=== PATIENT | female | born 1950 | race Caucasian/White ===

== ENCOUNTER → 2019-11-26 13:41 | Outpatient (BNVA) | payer MEDICARE, OTHER, SELFPAY | PROVIDERS: Family Provider Nurse Practitioner; PCP Nurse Practitioner; Visit Provider Nurse Practitioner | DX: F31.81 Bipolar II disorder (principal); F41.1 Generalized anxiety disorder | CPT/HCPCS: 99213 ==

== ENCOUNTER → 2019-12-19 09:52 | Outpatient (BNVA) | payer MEDICARE, OTHER, SELFPAY | PROVIDERS: Family Provider Nurse Practitioner; PCP Nurse Practitioner; Visit Provider Nurse Practitioner | DX: E03.8 Other specified hypothyroidism (principal); F31.81 Bipolar II disorder; K21.9 Gastro-esophageal reflux disease without esophagitis | CPT/HCPCS: 80048; 84439; 84443; 84481 ==

== ENCOUNTER → 2020-02-24 08:19 | Outpatient (BNVA) | payer MEDICARE, OTHER, SELFPAY | PROVIDERS: Family Provider Nurse Practitioner; PCP Nurse Practitioner; Visit Provider Nurse Practitioner | DX: F41.1 Generalized anxiety disorder (principal); F31.81 Bipolar II disorder; F43.12 Post-traumatic stress disorder, chronic | CPT/HCPCS: 99213 ==

== ENCOUNTER → 2020-05-21 08:38 | Outpatient (BNVA) | payer MEDICARE, OTHER, SELFPAY | PROVIDERS: Family Provider Nurse Practitioner; PCP Nurse Practitioner; Visit Provider Nurse Practitioner | DX: F31.81 Bipolar II disorder (principal); F41.1 Generalized anxiety disorder; F43.12 Post-traumatic stress disorder, chronic | CPT/HCPCS: 99213 ==

== ENCOUNTER → 2020-05-28 09:11 | Outpatient (BNVA) | payer MEDICARE, OTHER, SELFPAY | PROVIDERS: Family Provider Nurse Practitioner; PCP Nurse Practitioner; Visit Provider Nurse Practitioner | DX: F31.81 Bipolar II disorder (principal) | CPT/HCPCS: 80164 ==

== ENCOUNTER → 2020-07-10 09:25 | Outpatient (BNVA) | payer MEDICARE, OTHER, SELFPAY | PROVIDERS: Family Provider Nurse Practitioner; PCP Nurse Practitioner; Visit Provider Nurse Practitioner Family | DX: R35.0 Frequency of micturition (principal) | CPT/HCPCS: 81000 ==

== ENCOUNTER → 2020-07-20 08:56 | Outpatient (BNVA) | payer MEDICARE, OTHER, SELFPAY | PROVIDERS: Family Provider Nurse Practitioner; PCP Nurse Practitioner; Visit Provider Nurse Practitioner Family | DX: N39.0 Urinary tract infection, site not specified (principal) | CPT/HCPCS: 81000 ==

== ENCOUNTER → 2020-08-20 08:25 | Outpatient (BNVA) | payer MEDICARE, OTHER, SELFPAY | PROVIDERS: Family Provider Nurse Practitioner; PCP Nurse Practitioner; Visit Provider Nurse Practitioner | DX: F41.1 Generalized anxiety disorder (principal); F31.81 Bipolar II disorder; Z79.899 Other long term (current) drug therapy; F43.12 Post-traumatic stress disorder, chronic | CPT/HCPCS: 99213 ==

== ENCOUNTER → 2020-09-07 09:05 | Outpatient (BNVA) | payer MEDICARE, OTHER, SELFPAY | PROVIDERS: Family Provider Nurse Practitioner; PCP Nurse Practitioner; Visit Provider Nurse Practitioner Family | DX: Z79.899 Other long term (current) drug therapy (principal); E03.8 Other specified hypothyroidism; K21.9 Gastro-esophageal reflux disease without esophagitis; F41.1 Generalized anxiety disorder | CPT/HCPCS: 80053; 80061; 80164; 84443; 85025 ==

== ENCOUNTER → 2020-11-10 08:05 | Outpatient (BNVA) | payer MEDICARE, OTHER, SELFPAY | PROVIDERS: Family Provider Nurse Practitioner; PCP Nurse Practitioner; Visit Provider Nurse Practitioner | DX: F31.81 Bipolar II disorder (principal); F41.1 Generalized anxiety disorder | CPT/HCPCS: 99213 ==

== ENCOUNTER → 2020-11-30 14:57 | Outpatient (BNVA) | payer MEDICARE, OTHER, SELFPAY | PROVIDERS: Family Provider Nurse Practitioner; PCP Nurse Practitioner; Visit Provider Nurse Practitioner | DX: E55.9 Vitamin D deficiency, unspecified (principal); I83.93 Asymptomatic varicose veins of bilateral lower extremities; R09.89 Other specified symptoms and signs involving the circulatory and respiratory systems | CPT/HCPCS: 82306; 83735 ==

== ENCOUNTER → 2021-02-05 16:15 | Outpatient (BNVA) | payer MEDICARE, OTHER, SELFPAY | PROVIDERS: Family Provider Nurse Practitioner; PCP Nurse Practitioner; Visit Provider Nurse Practitioner | DX: R30.0 Dysuria (principal) | CPT/HCPCS: 81000 ==

== ENCOUNTER 2021-02-15 11:28 | Emergency (ER) | payer MEDICARE, OTHER, SELFPAY ==
[2021-02-15 11:52] VITALS: BP 140/78; PULSE 87; RESP 18; TEMP 36.8; O2SAT 97; BMI 23.0
[2021-02-15 12:32] VITALS: PULSE 90
--- NOTE | 2021-02-15 12:32 | CT_ITS ---
WS: [id number] CT CERVICAL SPINE HISTORY: syncopal episode and fell. woke up with neck pain TECHNIQUE: Contiguous 2.5 mm axial imaging performed through the entire cervical spine. Sagittal and coronal reformats also performed. All CT scans at [facility] use at least one of these do se optimization techniques: automated exposure control; mA and/or kV adjustment per patient size (inc ludes targeted exams where dose is matched to clinical indication); or iterative reconstruction. DLP: 431.01 mGy.cm COMPARISON: None available. Straightening of the normal cervical doses. C2 and C3 anterolisthesis by 2 mm. Moderate degenerative disc space narrowing and osteophytosis at C5-6 and C6-7. No fractures. Craniocervical junction is nor mal. The odontoid process is intact. Facet joints are normally aligned. Marked narrowing of the facet joints, most significant at L3-4. C2-C3: Small central disc protrusion with mild RIGHT foraminal narrowing due to severe facet joint ar thritis. C3-C4: Bilateral facet joint arthritis causing mild bilateral foraminal stenosis. C4-C5: Mild osteophytic ridging resulting in mild bilateral foraminal stenosis. C5-C6: Marked osteophytic ridging with mild encroachment of osteophytes about the thecal sac. Moderat e RIGHT and mild LEFT foraminal stenosis. C6-C7: Diffuse osteophytic ridging. Mild bilateral foraminal stenosis. C7-T1: Normal. 6 mm nodule with adjacent scattered opacifications in the RIGHT upper lobe. Mild atherosclerosis of t he visualized thoracic aorta. CT/CT cervical spin wo con* [id number] IMPRESSION: 1. No acute cervical spine fracture. 2. Facet joint arthritis and osteophytic ridging contributing to foraminal vega nosis as described above. 3. RIGHT upper lobe nodule measuring 6 mm with adjacent scattered opacificatio ns. Recommend follow-up chest CT with IV contrast which can be performed as an outpatient on a nonurgent basis.
--- NOTE | 2021-02-15 12:32 | CT_ITS ---
WS: [id number] CT HEAD NONCONTRAST HISTORY: syncopal episode TECHNIQUE: Contiguous axial imaging performed through the brain in 2.5 mm imaging. Bone and soft tiss ue windows. Sagittal and coronal reformats reviewed. All CT scans at [facility] use at ast one of these dose optimization techniques: automated exposure control; mA and/or kV adjustment pe r patient size (includes targeted exams where dose is matched to clinical indication); or iterative r econstruction. DLP: 874.75 mGy.cm COMPARISON: MRI brain 12/29/2016 No acute intracranial hemorrhage, midline shift or mass effect. Mild atrophy and mild chronic microvascular ischemic disease. No prior infarcts. Ventricles: Normal size with no hydrocephalus. Paranasal sinuses: As visualized are clear. Mastoid air cells: Well pneumatized. Calvarium and scalp: Skull is intact with no soft tissue edema or swelling. CT/CT head wo con* [id number] IMPRESSION: 1. No acute intracranial hemorrhage or edema. 2. Mild atrophy and mild chronic microvascular ischemic disease.
--- NOTE | 2021-02-15 12:32 | XRR_ITS ---
PROCEDURE INFORMATION: Exam: XR Chest Exam date and time: 02/15/2021 12:44 PM Age: 70 years old Clinical indication: Fever TECHNIQUE: Imaging protocol: XR of the chest. Views: 1 view. COMPARISON: CR Chest 2 views* [id number] 11/23/2015 2:18 PM FINDINGS: Lungs: There are bilateral pulmonary infiltrates. There is hazy infiltration of the right upper lobe and more prominent patchy hazy infiltrate in the left mid and lower lung zones. This is consistent with bilateral pneumonia. Pleural spaces: Unremarkable. No pleural effusion. No pneumothorax. Heart/Mediastinum: There is a small hiatal hernia. Bones/joints: Unremarkable. XR/XR chest 1V portable [id number] IMPRESSION: Bilateral pneumonia.
--- NOTE | 2021-02-15 12:33 | ECG_ITS ---
[facility] Test Date: 2021-02-15 Pat Name: Kaylee Chun Department: Room: Gender: Female Regional Branch Manager: : 1950 Requested By: Francisco Medina Order Number: [id number] Artis MD: Gabriela Helton M.D. Measurements Intervals [place] Rate: 90 P: 64 MD: 156 QRS: -7 QRSD: 105 T: 52 QT: 345 QTc: 423 Interpretive Statements SINUS RHYTHM WITH ARTIFACT LOW QRS VOLTAGE IN PRECORDIAL LEADS [QRS DEFLECTION < 1.0 mV IN CHEST LEADS] INCOMPLETE RIGHT BUNDLE BRANCH BLOCK [90+ ms QRS DURATION, TERMINAL R IN V1/V2, 40+ ms S IN I/aVL/V4/V5/V6] No previous ECG available for comparison Electronically Signed On 02-16-2021 12:20:30 CDT by Gabriela Helton M.D. [id number]
--- NOTE | 2021-02-15 12:34 | W.ED.SYNCOPE ---
HPI - Syncope General: Chief Complaint: Fever Stated Complaint: FEVER, GENERAL UNWELLNESS Time Seen by Provider: 02/15/21 12:02 History of Present Illness: HPI narrative: Patient is a 70-year-old female comes to the ED after having a syncopal episode. Patient's is present is helping provide history. Patient woke up this morning and had the chills and a fever of 102 ?F. Patient took some aspirin and then laid down and went to sleep. Later in the morning patient got up and went to the bathroom and had a syncopal episode. Patient does not remember getting up and going to the bathroom and states she woke up on her back on the floor of the bathroom which is a tiled floor. She says she had a headache and some neck pain and cannot remember what happened. Patient says for the past 10 to 12 days she has been treating a UTI. She had some burning with urination and was diagnosed with a UTI and put on Keflex. She took her last dose of Keflex on February 13. She says today she is having urine frequency but denies any burning or pain when she urinates. Patient does endorse having a hacking cough that is been going on for several days as well. She says the cough is productive and she coughs up yellow sputum. Denies any abdominal pain, flank pain, nausea/vomiting, chest pain, shortness of breath. Patient's also thought she seemed to have some confusion this morning, but here in the ED she appears to be almost at her baseline. Associated symptoms: Reports headache(s); Deny abdominal pain, chest pain, fever(s) or nausea Review of Systems Const: Denies: fever(s), chills or fatigue Eyes: Denies: change in vision or eye discomfort ENMT: Denies: throat pain, odynophagia, nasal discharge or nasal congestion Card: Reports: syncope; Denies: chest pain, palpitations, edema, swelling of feet/ankles, dyspnea on exertion or orthopnea Resp: Reports: productive cough (Coughs up yellow sputum); Denies: dyspnea or non-productive cough GI: Denies: abdominal pain, nausea, vomiting, diarrhea, constipation or hematochezia : Reports: urinary frequency; Denies: flank pain, dysuria or hematuria Musc: Reports: neck pain; Denies: back pain or extremity swelling Skin/Breast: Denies: rash or new lesions Neuro: Reports: headache(s); Denies: numbness in extremities or weakness in extremities PFSH ED PFSH: Medical History Adult onset hypothyroidism Bipolar 2 disorder, major depressive episode Dependence on CPAP ventilation Generalized anxiety disorder GERD (gastroesophageal reflux disease) History of mammogram 2019 Normal Mild obstructive sleep apnea On valproic acid therapy Wears hearing aid in both ears Surgical History History of colonoscopy 2014 History of gastric bypass History of tubal ligation Family History Father CAD (coronary artery disease) Parkinson disease Mother Bipolar disorder Other Hypertension Social History Smoking and tobacco status: never smoked Second hand smoke exposure: No Smoking risk assessment/counseling performed?: No Alcohol intake: never Desire information about alcohol rehabilitation?: No Counseling given: No Desire information about substance/drug rehabilitation?: No Counseling given: No Adopted: No Caregiver/support person: No Lives independently: Yes Household members: spouse Marital status: service: No Current occupational status: retired Pets and animals: Yes Pets & animals: dog(s) History of recent travel: No Current gender identity: Female Physical Exam Const: COMMON NORMALS: no acute distress, patient oriented x3, healthy appearing and alert GENERAL APPEARANCE: cooperative and comfortable HENMT: COMMON NORMALS: normocephalic HEAD & SCALP: normocephalic; no Terrazas's sign, no palpable skull fracture, no raccoon eyes and no scalp tenderness MOUTH: Normal oral and palatal mucosa present THROAT: posterior oropharynx normal and uvula midline Neck/C-Spine: COMMON NORMALS: supple GENERAL: Yes normal visual inspection CERVICAL SPINE: Yes cervical ROM normal Resp: COMMON NORMALS: normal respiratory effort, No retractions, No use of accessory muscles and clear to auscultation bilaterally (Right lung clear to auscultation) AUSCULTATION: clear to auscultation bilaterally (Right lung clear to auscultation) and diminished lung sounds on the left (Diminished lung sounds on left side.) in the lower lung mills and in the upper lung mills Cardio: COMMON NORMALS: regular rate, regular rhythm, S1 normal heart sound present, S2 normal heart sound present, No gallops present (Cardio), No clicks present (Cardio), No murmurs present (Cardio) and Peripheral pulses 2+ throughout RATE: regular rate RHYTHM: regular rhythm HEART SOUNDS: S1 normal heart sound present and S2 normal heart sound present PERIPHERAL PULSES: Peripheral pulses 2+ throughout GI: COMMON NORMALS: Normal to inspection, nondistended, normoactive bowel sounds present, Soft to palpation, non-tender and no masses PALPATION: Yes Soft to palpation : COMMON NORMALS: Yes no CVA tenderness BLADDER/KIDNEY EXAM: Yes no CVA tenderness Back/Pelvis: COMMON NORMALS: no CVA tenderness Extremity: COMMON NORMALS: normal to inspection Neuro: COMMON NORMALS: patient oriented x3, CN's II-XII intact bilaterally, moves all extremities and no focal motor deficits SENSORIUM/ORIENTATION: Yes alert SENSORY EXAM: Yes extremities (intact) MOTOR EXAM: 5/5 motor strength present throughout Skin: GENERAL SKIN EXAM: dry skin Course Vital Signs: Vital signs: Vital Signs Temperature 98.2 F 02/15/21 11:52 Pulse Rate 82 02/15/21 16:24 Respiratory Rate 15 02/15/21 16:24 Blood Pressure 112/76 02/15/21 16:24 Pulse Oximetry 98 02/15/21 16:24 MDM - Syncope MDM Narrative: Medical decision making narrative: Patient is a 70-year-old female comes to the ED with a fever and syncopal episode. Patient says that she had a fever this morning and was recently treated for UTI and took her last dose of Keflex on approximately 3 days ago. Patient also endorses having productive cough with yellow phlegm. Today she woke up with a fever and says she had a syncopal episode in the bathroom and woke up on the floor. She has a headache and some neck pain as well after fall. Exam shows a nontoxic 70-year-old female patient that is lying comfortably on exam bed and in no acute distress or pain. Patient's neuro exam was normal. White blood cell count 19.1 rest of CBC and CMP were unremarkable. Lactic 1.2 troponins negative and EKG showed normal sinus rhythm with no ST segment elevation or depression. CT of cervical spine and CT of head showed no acute findings. Chest x-ray showed bilateral pneumonia. Patient's vital stable and respiration rate 15 and O2 sat 98% on room air. Patient was given IV fluids and Rocephin while here in the ED. Patient diagnosed with bilateral pneumonia and syncope and discharged home with a prescription for azithromycin. Patient also discharged home with some Zofran to take as needed for nausea. Patient has a appointment with her PCP on October 20 for follow-up. Return to ED precautions given. Patient understood agree with plan. Lab Data: Attestation: I reviewed the patient's lab results. Labs: Lab Results 02/15/21 02/15/21 02/15/21 Range/Units 12:55 12:55 12:55 WBC 19.1 H (4.0-10.0) 10^3/ uL RBC 3.38 L (4.1-5.3) 10^6/u L Hgb 11.9 (11.5-15.3) g/dL Hct 37.2 (37.0-47.0) % MCV 110.1 H (81-99) fL MCH 35.2 H (28.0-34.0) pg MCHC 32.0 (30.0-36.0) g/dL RDW 13.1 (12.1-15.1) % Plt Count 165 (130-400) 10^3/c mm MPV 9.6 (7.4-10.4) fL Neut % (Auto) 81.9 % Lymph % (Auto) 5.0 % [place] % (Auto) 12.2 % Eos % (Auto) 0.0 % Baso % (Auto) 0.3 % Neut # (Auto) 15.65 H (1.8-7.7) 10^3/u L Lymph # (Auto) 1.0 (0.8-4.8) 10^3/u L [place] # (Auto) 2.3 H (0.2-0.9) 10^3/u L Eos # (Auto) 0.0 (0.0-0.8) 10^3/u L Baso # (Auto) 0.1 (0.0-0.1) 10^3/u L Nucleated RBC % (a uto) 0 % Nucleated RBCs # 0.0 /100WBC Sodium 139 (136-145) mmol/L Potassium 4.3 (3.5-5.1) mmol/L Chloride 102 (98-107) mmol/L Carbon Dioxide 28 (22-29) mmol/L Anion Gap 13.3 (5-19) BUN 11 (8-23) mg/dL Creatinine 0.7 (0.5-0.9) mg/dL GFR Calculation 83.0 L (90-130) mL/min Glucose 81 (65-115) mg/dL Calculated Osmolal ity 286 (285-295) mOsm/k g Lactic Acid (0.5-2.2) mmol/L Calcium 8.8 (8.5-10.5) mg/dL Total Bilirubin 0.4 (0.15-1.2) mg/dL AST 14 (0-32) U/L ALT < 5 (0-33) U/L Alkaline Phosphata se 63 (35-105) IU/L Troponin T Baselin e 12 H (0-10) ng/L Troponin T 120 Min habematolel (0-10) ng/L Delta Troponin T (0-10) ABS# Total Protein 5.7 L (6.6-8.7) g/dL Albumin 3.7 (3.5-5.2) g/dL Globulin 2.0 (1.3-4.6) g/dL Lipase 12 L (13-60) U/L Valproic Acid (50-100) ug/mL 02/15/21 02/15/21 02/15/21 Range/Units 12:55 15:00 15:05 WBC (4.0-10.0) 10^3/ uL RBC (4.1-5.3) 10^6/u L Hgb (11.5-15.3) g/dL Hct (37.0-47.0) % MCV (81-99) fL MCH (28.0-34.0) pg MCHC (30.0-36.0) g/dL RDW (12.1-15.1) % Plt Count (130-400) 10^3/c mm MPV (7.4-10.4) fL Neut % (Auto) % Lymph % (Auto) % [place] % (Auto) % Eos % (Auto) % Baso % (Auto) % Neut # (Auto) (1.8-7.7) 10^3/u L Lymph # (Auto) (0.8-4.8) 10^3/u L [place] # (Auto) (0.2-0.9) 10^3/u L Eos # (Auto) (0.0-0.8) 10^3/u L Baso # (Auto) (0.0-0.1) 10^3/u L Nucleated RBC % (a uto) % Nucleated RBCs # /100WBC Sodium (136-145) mmol/L Potassium (3.5-5.1) mmol/L Chloride (98-107) mmol/L Carbon Dioxide (22-29) mmol/L Anion Gap (5-19) BUN (8-23) mg/dL Creatinine (0.5-0.9) mg/dL GFR Calculation (90-130) mL/min Glucose (65-115) mg/dL Calculated Osmolal ity (285-295) mOsm/k g Lactic Acid 1.2 (0.5-2.2) mmol/L Calcium (8.5-10.5) mg/dL Total Bilirubin (0.15-1.2) mg/dL AST (0-32) U/L ALT (0-33) U/L Alkaline Phosphata se (35-105) IU/L Troponin T Baselin e (0-10) ng/L Troponin T 120 Min habematolel 12.18 H (0-10) ng/L Delta Troponin T 0.18 (0-10) ABS# Total Protein (6.6-8.7) g/dL Albumin (3.5-5.2) g/dL Globulin (1.3-4.6) g/dL Lipase (13-60) U/L Valproic Acid 125.3 H (50-100) ug/mL Imaging Data^: CT Head: Attestation: I personally reviewed and interpreted this imaging study as follows: Radiologist's impression: [address] [address] [address] Scan Report Signed Patient: Kaylee Chun Unit #: [id number] : 1950 Age/Sex: 70 / F ADM Date: 02/15/21 Loc: ER Room/Bed: Attending Dr: Ordering Provider/Ordering MD: Francisco Medina Date of Service: 02/15/21 Procedure(s): CT head wo con* [id number] Accession Number(s): [id number] Report Number: [id number] WS: [id number] CT HEAD NONCONTRAST HISTORY: syncopal episode TECHNIQUE: Contiguous axial imaging performed through the brain in 2.5 mm imaging. Bone and soft tissue windows. Sagittal and coronal reformats reviewed. All CT scans at [facility] use at least one of these dose optimization techniques: automated exposure control; mA and/or kV adjustment per patient size (includes targeted exams where dose is matched to clinical indication); or iterative reconstruction. DLP: 874.75 mGy.cm COMPARISON: MRI brain 12/29/2016 No acute intracranial hemorrhage, midline shift or mass effect. Mild atrophy and mild chronic microvascular ischemic disease. No prior infarcts. Ventricles: Normal size with no hydrocephalus. Paranasal sinuses: As visualized are clear. Mastoid air cells: Well pneumatized. Calvarium and scalp: Skull is intact with no soft tissue edema or swelling. CT/CT head wo con* [id number] IMPRESSION: 1. No acute intracranial hemorrhage or edema. 2. Mild atrophy and mild chronic microvascular ischemic disease. Dictated By: Trini Foy DO Signed By: Trini Foy DO Signed Date/Time: 02/15/21 1325 DD/ [address]: Attestation: I personally reviewed and interpreted this imaging study as follows: Radiologist's impression: [address] [address] [address] Scan Report Signed Patient: Kaylee Chun Unit #: [id number] : 1950 Age/Sex: 70 / F ADM Date: 02/15/21 Loc: ER Room/Bed: Attending Dr: Ordering Provider/Ordering MD: Francisco Medina Date of Service: 02/15/21 Procedure(s): CT cervical spin wo con* [id number] Accession Number(s): [id number] Report Number: [id number] WS: [id number] CT CERVICAL SPINE HISTORY: syncopal episode and fell. woke up with neck pain TECHNIQUE: Contiguous 2.5 mm axial imaging performed through the entire cervical spine. Sagittal and coronal reformats also performed. All CT scans at [facility] use at least one of these dose optimization techniques: automated exposure control; mA and/or kV adjustment per patient size (includes targeted exams where dose is matched to clinical indication); or iterative reconstruction. DLP: 431.01 mGy.cm COMPARISON: None available. Straightening of the normal cervical doses. C2 and C3 anterolisthesis by 2 mm. Moderate degenerative disc space narrowing and osteophytosis at C5-6 and C6-7. No fractures. Craniocervical junction is normal. The odontoid process is intact. Facet joints are normally aligned. Marked narrowing of the facet joints, most significant at L3-4. C2-C3: Small central disc protrusion with mild RIGHT foraminal narrowing due to severe facet joint arthritis. C3-C4: Bilateral facet joint arthritis causing mild bilateral foraminal stenosis. C4-C5: Mild osteophytic ridging resulting in mild bilateral foraminal stenosis. C5-C6: Marked osteophytic ridging with mild encroachment of osteophytes about the thecal sac. Moderate RIGHT and mild LEFT foraminal stenosis. C6-C7: Diffuse osteophytic ridging. Mild bilateral foraminal stenosis. C7-T1: Normal. 6 mm nodule with adjacent scattered opacifications in the RIGHT upper lobe. Mild atherosclerosis of the visualized thoracic aorta. CT/CT cervical spin wo con* [id number] IMPRESSION: 1. No acute cervical spine fracture. 2. Facet joint arthritis and osteophytic ridging contributing to foraminal stenosis as described above. 3. RIGHT upper lobe nodule measuring 6 mm with adjacent scattered opacifications. Recommend follow- up chest CT with IV contrast which can be performed as an outpatient on a nonurgent basis. Dictated By: Trini Foy DO Signed By: Trini Foy DO Signed Date/Time: 02/15/21 1330 DD/ 1325 CXR: Attestation: I personally reviewed and interpreted this imaging study as follows: Radiologist's impression: [address] [place] [address] XRay Report Signed Patient: Kaylee Chun Unit #: [id number] : 1950 Age/Sex: 70 / F ADM Date: 02/15/21 Loc: ER Room/Bed: Attending Dr: Ordering Provider/Ordering MD: Francisco Medina Date of Service: 02/15/21 Procedure(s): XR chest 1V portable [id number] Accession Number(s): [id number] Report Number: [id number] PROCEDURE INFORMATION: Exam: XR Chest Exam date and time: 02/15/2021 12:44 PM Age: 70 years old Clinical indication: Fever TECHNIQUE: Imaging protocol: XR of the chest. Views: 1 view. COMPARISON: CR Chest 2 views* [id number] 11/23/2015 2:18 PM FINDINGS: Lungs: There are bilateral pulmonary infiltrates. There is hazy infiltration of the right upper lobe and more prominent patchy hazy infiltrate in the left mid and lower lung zones. This is consistent with bilateral pneumonia. Pleural spaces: Unremarkable. No pleural effusion. No pneumothorax. Heart/Mediastinum: There is a small hiatal hernia. Bones/joints: Unremarkable. XR/XR chest 1V portable [id number] IMPRESSION: Bilateral pneumonia. Dictated By: Wu Ramirez Signed By: Wu Ramirez Signed Date/Time: 02/15/21 1258 DD/ 1256 EKG Data^: EKG 1: Attestation: I personally reviewed and interpreted this EKG as follows: EKG interpretation date: 02/15/21 Interpretation: Sinus rhythm, 83 bpm, no ST segment elevation or depression seen. Discharge Plan Discharge Patient Disposition: Home Clinical Impression: Bilateral pneumonia Qualifiers: Pneumonia type: due to unspecified organism Lung location: unspecified part of lung Qualified Code(s): J18.9 - Pneumonia, unspecified organism Syncope Qualifiers: Syncope type: unspecified Qualified Code(s): R55 - Syncope and collapse Condition: Stable Prescriptions: New azithromycin 250 mg tablet See Rx Instructions .ROUTE .COMPLEX Qty: 6 RF: 0 ondansetron 4 mg tablet,disintegrating 4 mg PO Q8H Qty: 15 RF: 0 No Action metronidazole 0.75 % gel 1 applic TOPICAL DAILY Qty: 45 RF: 0 divalproex [Depakote] 250 mg tablet,delayed release (DR/EC) 750 mg PO BID Qty: 180 RF: 2 levothyroxine 25 mcg capsule 25 mcg PO DAILY Qty: 30 RF: 5 tolterodine [Detrol LA] 4 mg capsule,extended release 24hr 4 mg PO Q24H 30 Days Qty: 30 RF: 5 Keflex 500 mg Capsule 500 mg PO Q12H RF: 0 Vitamin C 1 tab PO DAILY RF: 0 Vitamin D3 1 tab PO DAILY RF: 0 zinc 1 tab PO DAILY RF: 0 Protonix 40 mg tablet,delayed release (DR/EC) 40 mg PO DAILY RF: 0 Ambien 10 mg tablet 10 mg PO BEDTIME RF: 0 Discharge Orders: Discharge ED (Routine); Ordered 02/15/21 Ordered By: Francisco Medina Referrals: Ceci Orozco FNP-C [Primary Care Provider] - Discharge Diet: Advance as tolerated Discharge Activity: Increase activity as tolerated Patient Instructions: Syncope (ED), Pneumonia (ED) Activity Restrictions/Additional Instructions: Follow-up with medical provider as directed. Contact your PCP and set up an appointment with them to be seen and reevaluated by February 19. Take medications as prescribed. Drink plenty of fluids and stay hydrated. Return to the ER or your medical provider if condition worsens. Please read and understand discharge instructions. If any questions, please ask. Coding Level of Care Code ED [employer] for [employer]esha Fwd Exam Comprehensive
[2021-02-15 13:08] VITALS: BP 116/64; PULSE 89; RESP 20; O2SAT 99
[2021-02-15 13:14] LABS: Basophils # 0.1 10^3/uL (0.0-0.1); Basophils % 0.3 %; Hematocrit 37.2 % (37.0-47.0); Hemoglobin 11.9 g/dL (11.5-15.3); Mean Corpuscular Hemoglobin 35.2 pg (28.0-34.0); Mean Corpuscular Volume 110.1 fL (81-99); Mean Platelet Volume 9.6 fL (7.4-10.4); Monocytes # 2.3 10^3/uL (0.2-0.9); Monocytes % 12.2 %; Neutrophils # 15.65 10^3/uL (1.8-7.7); Neutrophils % 81.9 %; Nucleated Red Blood Cells % 0 %; Platelet Count 165 10^3/cmm (130-400); Red Blood Count 3.38 10^6/uL (4.1-5.3); Red Cell Distribution Width 13.1 % (12.1-15.1); White Blood Count 19.1 10^3/uL (4.0-10.0)
[2021-02-15 13:30] LABS: Alanine Aminotransferase < 5 U/L (0-33); Albumin Level 3.7 g/dL (3.5-5.2); Alkaline Phosphatase 63 IU/L (35-105); Anion Gap 13.3 (5-19); Aspartate Amino Transferase 14 U/L (0-32); Blood Urea Nitrogen 11 mg/dL (8-23); Calcium 8.8 mg/dL (8.5-10.5); Carbon Dioxide 28 mmol/L (22-29); Chloride 102 mmol/L (98-107); Glucose 81 mg/dL (65-115); Lipase 12 U/L (13-60); Osmolality Calculated 286 mOsm/kg (285-295); Potassium 4.3 mmol/L (3.5-5.1); Sodium 139 mmol/L (136-145); Total Bilirubin 0.4 mg/dL (0.15-1.2); Total Protein 5.7 g/dL (6.6-8.7)
[2021-02-15 13:32] LABS: Troponin(5th) Baseline 12 ng/L (0-10)
[2021-02-15] MEDS: cefTRIAXone 2,000 MG in sodium chloride 0.9% (plus) 50 ML 100 MG IV (13:46)
[2021-02-15] MEDS: sodium chloride 0.9% 1,000 ML 999 ML IV (13:46)
[2021-02-15 14:07] LABS: Valproic Acid Level 125.3 ug/mL (50-100)
[2021-02-15 14:08] VITALS: BP 128/90; PULSE 78; RESP 18; O2SAT 96
--- NOTE | 2021-02-15 14:33 | ECG_ITS ---
[facility] Test Date: 2021-02-15 Pat Name: Kaylee Chun Department: Room: Gender: Female Water Technician: : 1950 Requested By: Francisco Medina Order Number: [id number] Chandra MD: Gabriela Helton M.D. Measurements Intervals [place] Rate: 83 P: 61 ME: 188 QRS: 16 QRSD: 83 T: 43 QT: 347 QTc: 408 Interpretive Statements SINUS RHYTHM LOW QRS VOLTAGE IN PRECORDIAL LEADS [QRS DEFLECTION < 1.0 mV IN CHEST LEADS] Compared to ECG 02/15/2021 12:52:24 Ventricular premature complex(es) no longer present Incomplete right bundle-branch block no longer present Electronically Signed On 02-16-2021 12:36:03 CDT by Gabriela Helton M.D. [id number]
[2021-02-15 15:52] LABS: Lactic Sepsis W/Reflex 1.2 mmol/L (0.5-2.2)
[2021-02-15 15:53] LABS: Troponin 5 2HR 12.18 ng/L (0-10); Troponin 5 2HR Delta 0.18 ABS# (0-10)
[2021-02-15 16:00] VITALS: BP 112/76; PULSE 82; RESP 15; O2SAT 98
[2021-02-15 16:24] VITALS: BP 112/76; PULSE 82; RESP 15; O2SAT 98
== END 2021-02-15 16:24 | disposition home or self-care (01) ==
PROVIDERS: Emergency Provider Physician Assistant; PCP Nurse Practitioner
DX: R55 Syncope and collapse (principal); J18.9 Pneumonia, unspecified organism
CPT/HCPCS: 36415; 70450; 71045; 72125; 80053; 80164; 81000; 83605; 83690; 84484; 85025; 93005; 96365; 99284; J0696; J7030

== ENCOUNTER → 2021-02-18 11:59 | Outpatient (BNVA) | payer MEDICARE, OTHER, SELFPAY | PROVIDERS: PCP Nurse Practitioner; Visit Provider Nurse Practitioner | DX: J18.9 Pneumonia, unspecified organism (principal) | CPT/HCPCS: 85025 ==

== ENCOUNTER → 2021-02-19 07:48 | Outpatient (BNVA) | payer MEDICARE, OTHER, SELFPAY | PROVIDERS: PCP Nurse Practitioner; Visit Provider Nurse Practitioner | DX: F31.81 Bipolar II disorder (principal); F41.1 Generalized anxiety disorder | CPT/HCPCS: 99214 ==

== ENCOUNTER → 2021-03-08 09:44 | Outpatient (BNVA) | payer MEDICARE, OTHER, SELFPAY | PROVIDERS: PCP Nurse Practitioner; Visit Provider Nurse Practitioner Family | DX: E03.8 Other specified hypothyroidism (principal); J18.9 Pneumonia, unspecified organism | CPT/HCPCS: 84443; 85025 ==

== ENCOUNTER → 2021-03-16 14:01 | Outpatient (BNVA) | payer MEDICARE, OTHER, SELFPAY | PROVIDERS: PCP Nurse Practitioner; Visit Provider Nurse Practitioner Family | DX: R50.9 Fever, unspecified (principal); W57.XXXA Bitten or stung by nonvenomous insect and other nonvenomous arthropods, initial encounter; G93.40 Encephalopathy, unspecified; K86.89 Other specified diseases of pancreas; R05 Cough | CPT/HCPCS: 80053; 86003; 86618; 86666; 86757 ==

== ENCOUNTER → 2021-03-22 10:33 | Outpatient (BNVA) | payer MEDICARE, OTHER, SELFPAY | PROVIDERS: PCP Nurse Practitioner; Visit Provider Nurse Practitioner | DX: E03.8 Other specified hypothyroidism (principal); F41.1 Generalized anxiety disorder; R05 Cough | CPT/HCPCS: 71046; 80048; 80164; 81000 ==

== ENCOUNTER → 2021-04-19 12:48 | Outpatient (BNVA) | payer MEDICARE, OTHER, SELFPAY | PROVIDERS: PCP Nurse Practitioner; Visit Provider Specialist | DX: R41.82 Altered mental status, unspecified (principal); F03.90 Unspecified dementia, unspecified severity, without behavioral disturbance, psychotic disturbance, mood disturbance, and anxiety; R20.0 Anesthesia of skin; R20.2 Paresthesia of skin; F40.240 Claustrophobia; R48.2 Apraxia | CPT/HCPCS: 36415; 82607; 85651; 86140; 96116; 99205 ==

== ENCOUNTER 2021-04-19 14:39 | Outpatient (CLI) | payer MEDICARE, OTHER, SELFPAY ==
[2021-04-19 15:31] LABS: C Reactive Protein 27.4 mg/L (0.0-4.9)
[2021-04-19 15:43] LABS: Erythrocyte Sedimentation Rate 22 mm/hr (0-15)
[2021-04-19 15:45] LABS: Vitamin B12 597 pg/mL (232-1245)
== END 2021-04-19 14:40 | disposition home or self-care (01) ==
PROVIDERS: PCP Nurse Practitioner; Visit Provider Specialist
DX: R20.0 Anesthesia of skin (principal); R20.2 Paresthesia of skin
CPT/HCPCS: 36415; 82607; 85651; 86140

== ENCOUNTER → 2021-04-20 12:45 | Outpatient (BNVA) | payer MEDICARE, OTHER, SELFPAY | PROVIDERS: PCP Nurse Practitioner; Visit Provider Specialist | DX: R41.3 Other amnesia (principal); R56.9 Unspecified convulsions | CPT/HCPCS: 95816 ==

== ENCOUNTER → 2021-04-23 10:39 | Outpatient (BNVA) | payer MEDICARE, OTHER, SELFPAY | PROVIDERS: PCP Nurse Practitioner; Visit Provider Nurse Practitioner | DX: R60.0 Localized edema (principal) | CPT/HCPCS: 80053; 81000; 84443; 85025 ==

== ENCOUNTER → 2021-05-20 07:14 | Outpatient (BNVA) | payer MEDICARE, OTHER, SELFPAY | PROVIDERS: PCP Nurse Practitioner; Visit Provider Nurse Practitioner | DX: Z79.899 Other long term (current) drug therapy (principal) | CPT/HCPCS: 99214 ==

== ENCOUNTER → 2021-05-21 08:10 | Outpatient (BNVA) | payer MEDICARE, OTHER, SELFPAY | PROVIDERS: PCP Nurse Practitioner; Visit Provider Nurse Practitioner | DX: Z79.899 Other long term (current) drug therapy (principal) | CPT/HCPCS: 80164 ==

== ENCOUNTER → 2021-08-25 07:36 | Outpatient (BNVA) | payer MEDICARE, OTHER, SELFPAY | PROVIDERS: PCP Nurse Practitioner; Visit Provider Nurse Practitioner | DX: F41.1 Generalized anxiety disorder (principal); F31.81 Bipolar II disorder | CPT/HCPCS: 99214 ==

== ENCOUNTER → 2021-09-20 15:39 | Outpatient (BNVA) | payer MEDICARE, OTHER, SELFPAY | PROVIDERS: PCP Nurse Practitioner; Visit Provider Nurse Practitioner | DX: E03.8 Other specified hypothyroidism (principal) | CPT/HCPCS: 80053; 82607; 84443 ==

== ENCOUNTER → 2021-10-26 15:10 | Outpatient (BNVA) | payer MEDICARE, OTHER, SELFPAY | PROVIDERS: PCP Nurse Practitioner; Visit Provider Nurse Practitioner Family | DX: R30.0 Dysuria (principal); R32 Unspecified urinary incontinence; R73.9 Hyperglycemia, unspecified | CPT/HCPCS: 81000; 83036 ==

== ENCOUNTER → 2021-11-08 14:04 | Outpatient (BNVA) | payer MEDICARE, OTHER, SELFPAY | PROVIDERS: PCP Nurse Practitioner; Visit Provider Nurse Practitioner Family | DX: Z20.822 Contact with and (suspected) exposure to COVID-19 (principal) | CPT/HCPCS: 87635 ==

== ENCOUNTER → 2021-11-24 07:26 | Outpatient (BNVA) | payer MEDICARE, OTHER, SELFPAY | PROVIDERS: PCP Nurse Practitioner; Visit Provider Nurse Practitioner | DX: F31.81 Bipolar II disorder (principal); F41.1 Generalized anxiety disorder | CPT/HCPCS: 99214 ==

== ENCOUNTER → 2021-12-27 16:13 | Outpatient (BNVA) | payer MEDICARE, OTHER, SELFPAY | PROVIDERS: PCP Nurse Practitioner; Visit Provider Nurse Practitioner | DX: E53.8 Deficiency of other specified B group vitamins (principal); E03.8 Other specified hypothyroidism | CPT/HCPCS: 82607 ==

== ENCOUNTER → 2022-02-21 10:55 | Outpatient (BNVA) | payer MEDICARE, OTHER, SELFPAY | PROVIDERS: PCP Nurse Practitioner; Visit Provider Nurse Practitioner | DX: F31.81 Bipolar II disorder (principal); F41.1 Generalized anxiety disorder | CPT/HCPCS: 99214 ==

== ENCOUNTER → 2022-03-14 13:59 | Outpatient (BNVA) | payer MEDICARE, OTHER, SELFPAY | PROVIDERS: PCP Nurse Practitioner; Visit Provider Nurse Practitioner | DX: E03.8 Other specified hypothyroidism (principal); J06.9 Acute upper respiratory infection, unspecified; K21.9 Gastro-esophageal reflux disease without esophagitis; E53.8 Deficiency of other specified B group vitamins | CPT/HCPCS: 80053; 84443; 85025 ==

== ENCOUNTER → 2022-03-21 09:42 | Outpatient (BNVA) | payer MEDICARE, OTHER, SELFPAY | PROVIDERS: PCP Nurse Practitioner; Visit Provider Nurse Practitioner | DX: E03.8 Other specified hypothyroidism (principal); R05.9 Cough, unspecified | CPT/HCPCS: 85025 ==

== ENCOUNTER → 2022-06-15 08:20 | Outpatient (BNVA) | payer MEDICARE, OTHER, SELFPAY | PROVIDERS: PCP Nurse Practitioner; Visit Provider Nurse Practitioner | DX: Z79.899 Other long term (current) drug therapy (principal) | CPT/HCPCS: 80164 ==

== ENCOUNTER 2022-07-27 20:09 | Emergency (ER) | payer MEDICARE, OTHER, SELFPAY ==
[2022-07-27 20:21] VITALS: BP 120/73; PULSE 103; RESP 16; TEMP 38.9; O2SAT 95
[2022-07-27 20:22] VITALS: BMI 21.1
--- NOTE | 2022-07-27 21:19 | CTR_ITS ---
PROCEDURE INFORMATION: Exam: CT Head Without Contrast Exam date and time: 07/27/2022 9:36 PM Age: 72 years old Clinical indication: Altered mental status/memory loss and dizziness; Age related cognitive decline; Patient HX: AMS, dizziness TECHNIQUE: Imaging protocol: Computed tomography of the head without contrast. Radiation optimization: All CT scans at this facility use at least one of these dose optimization techniques: automated exposure control; mA and/or kV adjustment per patient size (includes targeted exams where dose is matched to clinical indication); or iterative reconstruction. COMPARISON: MR head wo/w con [id number] 03/06/2021 6:18 PM RADIATION DOSE METRICS: Total DLP (mGy-cm): 1073.84 FINDINGS: Brain: Normal. No hemorrhage. Unremarkable white matter. No mass effect. Cerebral ventricles: There is generalized sulcal widening and ventricular enlargement slightly increased as expected for patient's age. No extra-axial fluid collection, midline shift or hydrocephalus. Paranasal sinuses: Visualized sinuses are unremarkable. No fluid levels. Mastoid air cells: Visualized mastoid air cells are well aerated. Bones/joints: Unremarkable. No acute fracture. Soft tissues: Unremarkable. Other findings: No CT evidence for acute ischemia, mass or hemorrhage. CT/CT head wo con* [id number] IMPRESSION: 1. No acute intracranial findings. 2. Atrophy is slightly greater than expected for age.
--- NOTE | 2022-07-27 21:19 | XRR_ITS ---
PROCEDURE INFORMATION: Exam: XR Chest Exam date and time: 07/27/2022 9:23 PM Age: 72 years old Clinical indication: Fever TECHNIQUE: Imaging protocol: Radiologic exam of the chest. Views: 1 view. COMPARISON: CR XR chest 2V* [id number] 03/22/2021 10:35 AM FINDINGS: Lungs: There are a few bands of linear atelectasis in both lungs. No acute pneumonia, mass or pleural effusion. Pleural spaces: See Lungs finding. Heart/Mediastinum: Heart size is normal. Bones/joints: Unremarkable. XR/XR chest 1V portable [id number] IMPRESSION: No acute findings.
--- NOTE | 2022-07-27 21:33 | PC.NURSE ---
PT AMBULATED TO RESTROOM WITH RN. HAT PLACED IN TOILET. PT URINATED, BUT MISSED HAT COMPLETELY. NO URINE COLLECTED AT THIS TIME. WILL START FLUIDS AND REATTEMPT.
[2022-07-27 21:47] VITALS: BP 135/65; PULSE 102; RESP 14; O2SAT 98
--- NOTE | 2022-07-27 21:50 | ED_ITS ---
HPI - General Adult General: Chief complaint: General Medical Stated complaint: N/V, fever, ams Time Seen by Provider: 07/27/22 21:14 Source: patient Mode of arrival: ambulatory Limitations: no limitations History of Present Illness: 72-year-old female who states she is having chills and they checked her temperature she had a temperature of 102 she is febrile here as well. is at bedside states she has had some slight confusion here she is able answer all my questions appropriately does not appear confused here but he states it seems to wax and wane she denies any headache she does have a cough but states she has a chronic cough from her GERD. She has had no nausea no vomiting no abdominal pain. Associated symptoms: Reports confusion; Deny chest pain, dyspnea, nausea, rash or vomiting Review of Systems Const: Reports: fever(s), chills and body aches Eyes: Denies: blurry vision or eye discomfort ENMT: Denies: throat pain or dental pain Card: Denies: chest pain Resp: Denies: dyspnea GI: Denies: abdominal pain, nausea, vomiting or diarrhea : Denies: dysuria Musc: Denies: neck pain or back pain Skin/Breast: Denies: rash Neuro: Reports: confusion Psych: Denies: depression Anastacio/Lymph: Denies: easy bruising All/Imm: Denies: urticaria PFSH ED PFSH: Medical History Adult onset hypothyroidism Bipolar 2 disorder Bipolar 2 disorder, major depressive episode Dependence on CPAP ventilation Generalized anxiety disorder GERD (gastroesophageal reflux disease) History of mammogram 2019 Normal Mild obstructive sleep apnea On valproic acid therapy On valproic acid therapy On valproic acid therapy Psychiatric care Urine incontinence Wears hearing aid in both ears Surgical History History of colonoscopy 2014 History of gastric bypass History of tubal ligation Family History Father CAD (coronary artery disease) Parkinson disease Mother Bipolar disorder Other Hypertension Social History Smoking and tobacco status: never smoked Second hand smoke exposure: No Smoking risk assessment/counseling performed?: No Alcohol intake: never Desire information about alcohol rehabilitation?: No Counseling given: No Desire information about substance/drug rehabilitation?: No Counseling given: No Adopted: No Caregiver/support person: No Lives independently: Yes Household members: spouse Marital status: service: No Current occupational status: retired Pets and animals: Yes Pets & animals: dog(s) History of recent travel: No Current gender identity: Female Physical Exam Const: COMMON NORMALS: patient oriented x3 HENMT: COMMON NORMALS: normocephalic and atraumatic HEAD & SCALP: n ormocephalic and atraumatic Eye: COMMON NORMALS: Equal, round and reactive pupils present and EOMs intact bilaterally PUPIL: Yes Equal, round and reactive pupils present Neck/C-Spine: COMMON NORMALS: full ROM and supple Chest: COMMONS NORMALS: normal inspection of the chest and normal palpation of entire chest wall Resp: COMMON NORMALS: normal respiratory effort, No retractions, No use of accessory muscles and clear to auscultation bilaterally AUSCULTATION: clear to auscultation bilaterally Cardio: COMMON NORMALS: regular rate, regular rhythm and No murmurs present (Cardio) RATE: regular rate RHYTHM: regular rhythm GI: COMMON NORMALS: Normal to inspection, nondistended, normoactive bowel sounds present, Soft to palpation, non-tender and no masses PALPATION: Yes Soft to palpation Extremity: COMMON NORMALS: normal to inspection and full ROM Neuro: COMMON NORMALS: patient oriented x3, moves all extremities and no focal motor deficits Psych: COMMON NORMALS: mental status grossly normal, Normal thought process present and cooperative THOUGHT PROCESS: Normal thought process present Skin: COMMON NORMALS: no rashes or lesions noted and no wounds GENERAL SKIN EXAM: no rashes or lesions noted Course Vital Signs: Vital signs: Vital Signs Temperature 99.7 F H 07/27/22 21:58 Pulse Rate 100 07/27/22 21:58 Respiratory Rate 18 07/27/22 21:58 Blood Pressure 132/64 07/27/22 21:58 Pulse Oximetry 95 07/27/22 21:58 Oxygen Delivery Me thod 07/27/22 21:58 MDM - General Adult Medical Decision Making Patient presents here with a fever her fever is down she feels much improved currently she is not confused says she is at her baseline did inform her she has a slight white count she states she feels much improved and would like to go home no source of the fever found she does not have a headache no signs of meningitis no abdominal pain we will start her on Keflex follow her blood cu ltures I informed her and her if she has any worsening she is return immediately they understand she is to follow-up with PCP in 3 to 5 days. Lab Data : 07/27/22 21:55 07/27/22 22:36 Radiology Impressions Chest X-Ray 07/27/22 21:19 IMPRESSION: No acute findings. Head CT 07/27/22 21:19 IMPRESSION: 1. No acute intracranial findings. 2. Atrophy is slightly greater than expected for age. Laboratory Results WBC 20.5 10^3/uL (4.0-10.0) H 07/27/22 21:55 RBC 3.67 10^6/uL (4.1-5.3) L 07/27/22 21:55 Hgb 12.8 g/dL (11.5-15.3) 07/27/22 21:55 Hct 39.4 % (37.0-47.0) 07/27/22 21:55 MCV 107.4 fl (81-99) H 07/27/22 21:55 MCH 34.9 pg (28.0-34.0) H 07/27/22 21:55 MCHC 32.5 g/dL (30.0-36.0) 07/27/22 21:55 RDW 13.0 % (12.1-15.1) 07/27/22 21:55 Plt Count 291 10^3/cmm (130-400) 07/27/22 21:55 MPV 10.0 fL (7.4-10.4) 07/27/22 21:55 Neut % (Auto) 87.8 % 07/27/22 21:55 Lymph % (Auto) 2.6 % 07/27/22 21:55 [place] % (Auto) 8.6 % 07/27/22 21:55 Eos % (Auto) 0.0 % 07/27/22 21:55 Baso % (Auto) 0.2 % 07/27/22 21:55 Neut # (Auto) 18.02 10^3/uL (1.8-7.7) H 07/27/22 21:55 Lymph # (Auto) 0.5 10^3/uL (0.8-4.8) L 07/27/22 21:55 [place] # (Auto) 1.8 10^3/uL (0.2-0.9) H 07/27/22 21:55 Eos # (Auto) 0.0 10^3/uL (0.0-0.8) 07/27/22 21:55 Baso # (Auto) 0.0 10^3/uL (0.0-0.1) 07/27/22 21:55 Nucleated RBC % (auto) 0 % 07/27/22 21:55 Nucleated RBCs # 0.0 /100WBC 07/27/22 21:55 Sodium 137 mmol/L (136-145) 07/27/22 22:36 Potassium 4.5 mmol/L (3.5-5.1) 07/27/22 22:36 Chloride 104 mmol/L (98-107) 07/27/22 22:36 Carbon Dioxide 23 mmol/L (22-29) 07/27/22 22:36 Anion Gap 14.5 (5-19) 07/27/22 22:36 BUN 15 mg/dL (8-23) 07/27/22 22:36 Creatinine 0.8 mg/dL (0.5-0.9) 07/27/22 22:36 GFR Calculation Not Reportable 07/27/22 22:36 Glucose 90 mg/dL (65-115) 07/27/22 22:36 Calculated Osmolality 284 mOsm/kg (285-295) L 07/27/22 22:36 Lactate 0.9 mmol/L (0.5-2.2) 07/27/22 21:55 Calcium 8.8 mg/dL (8.5-10.5) 07/27/22 22:36 Total Bilirubin 0.2 mg/dL (0.15-1.2) 07/27/22 22:36 AST 11 U/L (0-32) 07/27/22 22:36 ALT < 5 U/L (0-33) 07/27/22 22:36 Alkaline Phosphatase 110 U/L (35-105) H 07/27/22 22:36 Total Protein 5.9 g/dL (6.6-8.7) L 07/27/22 22:36 Albumin 3.2 g/dL (3.5-5.2) L 07/27/22 22:36 Globulin 2.7 g/dL (1.3-4.6) 07/27/22 22:36 Lipase 14 U/L (13-60) 07/27/22 22:36 Urine Color Yellow (Yellow) 07/27/22 22:44 Urine Appearance Clear (CLEAR) 07/27/22 22:44 Urine pH 6.5 (5-7) 07/27/22 22:44 Ur Specific [place] 1.020 (1.005-1.030) 07/27/22 22:44 Urine Protein Negative (Negative) 07/27/22 22:44 Urine Glucose (UA) Negative (Normal) 07/27/22 22:44 Urine Ketones Negative (Negative) 07/27/22 22:44 Urine Blood Moderate (Negative) A 07/27/22 22:44 Urine Nitrate Negative 07/27/22 22:44 Urine Bilirubin Negative (Negative) 07/27/22 22:44 Urine Urobilinogen 1.0 mg/dL (Negative) 07/27/22 22:44 Ur Leukocyte Esterase Negative 07/27/22 22:44 Urine RBC 25-40 /hpf (0-2) H 07/27/22 22:44 Urine WBC None /hpf (0-5) 07/27/22 22:44 Ur Squamous Epith Cells 0-4 /hpf (0-5) H 07/27/22 22:44 Amorphous Sediment Not Reportable 07/27/22 22:44 Urine Bacteria None /hpf (NONE) 07/27/22 22:44 SARS-CoV-2 Ag (Rapid) Negative (Negative) 07/27/22 22:08 EKG Data EKG 1: I personally reviewed and interpreted this EKG as follows: EKG interpretation date: 07/27/22 EKG interpretation time: 22:16 Interpretation: nsr hr [address] or t wave abnormalities qrs 87 qtc 385 Computer generated interpretation: Chest X-Ray 07/27/22 21:19 IMPRESSION: No acute findings. Head CT 07/27/22 21:19 IMPRESSION: 1. No acute intracranial findings. 2. Atrophy is slightly greater than expected for age. Discharge Plan Discharge Patient Disposition: Home Clinical Impression: Fever Condition: Stable Prescriptions: New cephalexin 500 mg capsule 500 mg PO QID 7 Days Qty: 28 0RF No Action albuterol sulfate 2.5 mg /3 mL (0.083 %) solution for nebulization 2.5 mg inhalation Q4H PRN (Reason: shortness of breath or wheezing) Qty: 75 2RF potassium gluconate 595 mg (99 mg) tablet 595 mg PO DAILY PRN (Reason: with lasix) Label Comments: pt no longer taking Protonix 40 mg tablet,delayed release (DR/EC) 40 mg PO DAILY Qty: 90 1RF levothyroxine 50 mcg tablet 50 mcg PO DAILY Qty: 90 1RF cyanocobalamin (vitamin B-12) 1,000 mcg/mL solution 1,000 mcg IM .monthly Qty: 1 5RF (DME) Easy Touch SheathLock Syrg-Ndl 3 mL 25 gauge x 1 syringe See Rx Instructions .ROUTE .MEDSUPPLY Qty: 1 5RF Rx Instructions: use monthly with Vitamin B12 promethazine-DM 6.25-15 mg/5 mL syrup 5 ml PO Q6H PRN (Reason: cough) Qty: 120 0RF benzonatate 200 mg capsule 200 mg PO TID PRN (Reason: cough) Qty: 30 0RF albuterol sulfate [ProAir HFA] 90 mcg/actuation HFA aerosol inhaler 2 puff inhalation QID Qty: 8.5 2RF tolterodine [Detrol LA] 4 mg capsule,extended release 24hr 4 mg PO DAILY Qty: 30 2RF Rx Instructions: 340B divalproex [Depakote] 250 mg tablet,delayed release (DR/EC) See Rx Instructions PO BID Qty: 150 0RF Rx Instructions: 3 tablets in the am and 2 tablets in the PM zolpidem [Ambien] 5 mg tablet 5 mg PO .HS PRN (Reason: insomnia) Qty: 30 1RF Vitamin C 1 tab PO DAILY Vitamin D3 1 tab PO DAILY zinc 1 tab PO DAILY Discharge Orders: Discharge ED (Routine); Ordered 07/27/22 Ordered By: Rani Martin Referrals: Ceci Orozco [facility] [Primary Care Provider] - 1-3 days Discharge Diet: Advance as tolerated Discharge Activity: Resume usual activity Patient Instructions: Fever in Adults (ED) Coding Level of Care Code ED Consulting Practice Director for Chg Fwd Exam Comprehensive
[2022-07-27 21:58] VITALS: BP 132/64; PULSE 100; RESP 18; TEMP 37.6; O2SAT 95
[2022-07-27] MEDS: lactated ringers 1,000 ML 999 ML IV (22:01)
[2022-07-27 22:15] LABS: Basophils % 0.2 %; Hematocrit 39.4 % (37.0-47.0); Hemoglobin 12.8 g/dL (11.5-15.3); Lymphocytes # 0.5 10^3/uL (0.8-4.8); Lymphocytes % 2.6 %; Mean Corpuscular HGB Conc 32.5 g/dL (30.0-36.0); Mean Corpuscular Hemoglobin 34.9 pg (28.0-34.0); Mean Corpuscular Volume 107.4 fl (81-99); Monocytes # 1.8 10^3/uL (0.2-0.9); Monocytes % 8.6 %; Neutrophils # 18.02 10^3/uL (1.8-7.7); Neutrophils % 87.8 %; Nucleated Red Blood Cells % 0 %; Platelet Count 291 10^3/cmm (130-400); Red Blood Count 3.67 10^6/uL (4.1-5.3); White Blood Count 20.5 10^3/uL (4.0-10.0)
--- NOTE | 2022-07-27 22:16 | ECG_ITS ---
[facility] Test Date: 2022-07-27 Pat Name: Kaylee Chun Department: Room: Gender: Female Medical Chief Technician: : 1950 Requested By: Rani Martin Order Number: [id number] Chandra MD: Luigi Melo M.D. Measurements Intervals [place] Rate: 96 P: 54 [place]: 192 QRS: -5 QRSD: 87 T: 59 QT: 331 QTc: 419 Interpretive Statements SINUS RHYTHM POSSIBLE RIGHT VENTRICULAR CONDUCTION DELAY [RSR (QR) IN V1/V2] Compared to ECG 02/15/2021 14:59:09 No significant changes Electronically Signed On 07-28-2022 8:54:29 CDT by Luigi Melo M.D. [id number] f
[2022-07-27 22:33] LABS: Lactate (Lactic Acid level) 0.9 mmol/L (0.5-2.2)
[2022-07-27 22:35] LABS: SARS Covid-2 Antigen Negative (Negative)
[2022-07-27 22:57] LABS: Bilirubin Urine Negative (Negative); Blood Urine Moderate (Negative); Glucose Urine UA Negative (Normal); Ketones Urine Negative (Negative); Leukocyte Esterase Urine Negative; Nitrate Urine Negative; Protein Urine Negative (Negative); Urine Appearance Clear (CLEAR); Urine Color Yellow (Yellow); pH Urine 6.5 (5-7)
[2022-07-27 22:58] LABS: Add Urine Microscopic? YES
[2022-07-27 23:00] LABS: Add Urine Culture? No; RBC Urine 25-40 /hpf (0-2); Squamous Epithelial Cell Urine 0-4 /hpf (0-5)
[2022-07-27 23:03] LABS: Alanine Aminotransferase < 5 U/L (0-33); Albumin Level 3.2 g/dL (3.5-5.2); Alkaline Phosphatase 110 U/L (35-105); Anion Gap 14.5 (5-19); Aspartate Amino Transferase 11 U/L (0-32); Blood Urea Nitrogen 15 mg/dL (8-23); Calcium 8.8 mg/dL (8.5-10.5); Carbon Dioxide 23 mmol/L (22-29); Chloride 104 mmol/L (98-107); Globulin 2.7 g/dL (1.3-4.6); Glucose 90 mg/dL (65-115); Lipase 14 U/L (13-60); Osmolality Calculated 284 mOsm/kg (285-295); Potassium 4.5 mmol/L (3.5-5.1); Sodium 137 mmol/L (136-145); Total Bilirubin 0.2 mg/dL (0.15-1.2); Total Protein 5.9 g/dL (6.6-8.7)
[2022-07-28 00:08] VITALS: BP 130/57; PULSE 98; RESP 18; TEMP 37.3; O2SAT 97
[2022-07-28] MEDS: cephALEXin 500 mg Capsule PO (00:10)
== END 2022-07-28 00:22 | disposition home or self-care (01) ==
PROVIDERS: Nurse Practitioner Family; Emergency Provider Emergency Medicine; PCP Nurse Practitioner
DX: R50.9 Fever, unspecified (principal); Z20.822 Contact with and (suspected) exposure to COVID-19
CPT/HCPCS: 36415; 70450; 71045; 80053; 81001; 83605; 83690; 85025; 87426; 93005; 96360; 96361; 99285

== ENCOUNTER → 2022-08-02 15:26 | Outpatient (BNVA) | payer MEDICARE, OTHER, SELFPAY | PROVIDERS: PCP Nurse Practitioner; Visit Provider Nurse Practitioner Family | DX: R32 Unspecified urinary incontinence (principal); K21.9 Gastro-esophageal reflux disease without esophagitis; E53.8 Deficiency of other specified B group vitamins; E03.8 Other specified hypothyroidism; F41.1 Generalized anxiety disorder; Z79.899 Other long term (current) drug therapy; N39.0 Urinary tract infection, site not specified | CPT/HCPCS: 80053; 80061; 82607; 84443; 85025 ==

== ENCOUNTER → 2023-01-24 14:18 | Outpatient (BNVA) | payer MEDICARE, OTHER, SELFPAY | PROVIDERS: PCP Nurse Practitioner; Visit Provider Nurse Practitioner Family | DX: M79.671 Pain in right foot (principal); M79.672 Pain in left foot; G89.29 Other chronic pain; M25.50 Pain in unspecified joint; L72.0 Epidermal cyst; J06.9 Acute upper respiratory infection, unspecified | CPT/HCPCS: 84550 ==

== ENCOUNTER → 2023-01-30 13:34 | Outpatient (BNVA) | payer MEDICARE, OTHER, SELFPAY | PROVIDERS: PCP Nurse Practitioner; Visit Provider Podiatrist Foot & Ankle Surgery | DX: M20.41 Other hammer toe(s) (acquired), right foot (principal); M20.42 Other hammer toe(s) (acquired), left foot; G62.9 Polyneuropathy, unspecified | CPT/HCPCS: 99203 ==

== ENCOUNTER → 2023-03-03 12:11 | Outpatient (BNVA) | payer MEDICARE, OTHER, SELFPAY | PROVIDERS: PCP Nurse Practitioner; Visit Provider Nurse Practitioner | DX: E53.8 Deficiency of other specified B group vitamins (principal); E03.8 Other specified hypothyroidism; R32 Unspecified urinary incontinence; K21.9 Gastro-esophageal reflux disease without esophagitis; F31.81 Bipolar II disorder | CPT/HCPCS: 80053; 80061; 82607; 84443; 85025 ==

== ENCOUNTER → 2023-03-20 13:42 | Outpatient (BNVA) | payer MEDICARE, OTHER, SELFPAY | PROVIDERS: PCP Nurse Practitioner; Visit Provider Podiatrist Foot & Ankle Surgery | DX: G62.9 Polyneuropathy, unspecified (principal); M20.41 Other hammer toe(s) (acquired), right foot; M20.42 Other hammer toe(s) (acquired), left foot | CPT/HCPCS: 99213 ==

== ENCOUNTER → 2023-03-22 09:02 | Outpatient (BNVA) | payer MEDICARE, OTHER, SELFPAY | PROVIDERS: PCP Nurse Practitioner; Visit Provider Dermatology | DX: L94.2 Calcinosis cutis (principal); L98.6 Other infiltrative disorders of the skin and subcutaneous tissue; L90.5 Scar conditions and fibrosis of skin | CPT/HCPCS: 11406; 12032 ==

== ENCOUNTER → 2023-04-05 10:42 | Outpatient (BNVA) | payer MEDICARE, OTHER, SELFPAY | PROVIDERS: PCP Nurse Practitioner; Visit Provider Orthopaedic Surgery | DX: M70.21 Olecranon bursitis, right elbow (principal); Z48.02 Encounter for removal of sutures | CPT/HCPCS: 20605; 99024; 99203 ==

== ENCOUNTER → 2023-04-21 10:41 | Outpatient (BNVA) | payer MEDICARE, OTHER, SELFPAY | PROVIDERS: PCP Nurse Practitioner; Visit Provider Nurse Practitioner Family | DX: M70.21 Olecranon bursitis, right elbow (principal) | CPT/HCPCS: 20605; 99213 ==

== ENCOUNTER → 2023-06-12 09:57 | Outpatient (BNVA) | payer MEDICARE, OTHER, SELFPAY | PROVIDERS: PCP Nurse Practitioner; Visit Provider Nurse Practitioner Family | DX: R30.0 Dysuria (principal); R31.9 Hematuria, unspecified; N93.9 Abnormal uterine and vaginal bleeding, unspecified; Z79.899 Other long term (current) drug therapy | CPT/HCPCS: 80053; 80164; 81000; 85025; 87086 ==

== ENCOUNTER 2023-06-22 14:04 | Outpatient (CLI) | payer MEDICARE, OTHER, SELFPAY ==
--- NOTE | 2023-06-22 13:45 | US_ITS ---
WS: [id number] US pelvic complete* [id number] HISTORY: N93.9 - Abnormal uterine and vaginal bleeding, unspecified COMPARISON: None available. Patient declined transvaginal imaging. Uterus: 5.7 cm x 3.8 cm x 2.5 cm. Normal size anteverted uterus. No fibroid or mass. Endometrium: 0.3 cm. Extremely limited evaluation of the endometrium. This would be better evaluated by transvaginal examination. Neither ovary is identified. Only transabdominal imaging has been obtained. There are no adnexal mass es. No free fluid in the cul-de-sac. IMPRESSION: 1. Normal size anteverted uterus. 2. Neither ovary is identified on transabdominal imaging. 3. Limited evaluation of the endometrium. Patient declined transvaginal imaging.
--- NOTE | 2023-06-22 15:00 | US_ITS ---
WS: [id number] RENAL ULTRASOUND HISTORY: R31.9 - Hematuria, unspecified COMPARISON: None available. TECHNIQUE: 2-D and color Doppler imaging of the kidney submitted. Right kidney: 8.9 cm x 4.9 cm x 4.4 cm. Cortex: 1.0 cm Normal echogenicity with no hydronephrosis or mass. Left kidney: 9.6 cm x 4.5 cm x 4.5 cm. Cortex: 1.0 cm Normal size kidney. Cystic mass mid kidney 3.9 x 3.3 x 3.6 cm. There is an additional cyst which appe ars to be in the superior pole measuring 4.2 x 2.6 x 4.3 cm. No solid mass. No renal obstruction. Aorta: Normal. Urinary Bladder: Normal distention. IMPRESSION: 1. No hydronephrosis or solid mass. 2. LEFT renal cyst.
== END 2023-06-22 14:05 | disposition home or self-care (01) ==
PROVIDERS: PCP Nurse Practitioner; Visit Provider Nurse Practitioner Family
DX: N93.9 Abnormal uterine and vaginal bleeding, unspecified (principal); R31.9 Hematuria, unspecified; N28.1 Cyst of kidney, acquired; N85.4 Malposition of uterus
CPT/HCPCS: 76770; 76856; 80053; 80164; 81000; 85025; 87086

== ENCOUNTER → 2023-07-12 11:31 | Outpatient (BNVA) | payer MEDICARE, OTHER, SELFPAY | PROVIDERS: PCP Nurse Practitioner; Visit Provider Nurse Practitioner | DX: E03.8 Other specified hypothyroidism (principal); E53.8 Deficiency of other specified B group vitamins; M54.9 Dorsalgia, unspecified | CPT/HCPCS: 80053; 82607; 83735; 84443 ==

== ENCOUNTER → 2023-07-19 09:54 | Outpatient (BNVA) | payer MEDICARE, OTHER, SELFPAY | PROVIDERS: PCP Nurse Practitioner; Visit Provider Nurse Practitioner | DX: M54.9 Dorsalgia, unspecified (principal); M47.814 Spondylosis without myelopathy or radiculopathy, thoracic region | CPT/HCPCS: 72070; 72072; 72100 ==

== ENCOUNTER → 2023-08-22 15:32 | Outpatient (BNVA) | payer MEDICARE, OTHER, SELFPAY | PROVIDERS: PCP Nurse Practitioner; Visit Provider Nurse Practitioner Women's Health | DX: Z12.4 Encounter for screening for malignant neoplasm of cervix (principal); N95.2 Postmenopausal atrophic vaginitis | CPT/HCPCS: 87624 ==

== ENCOUNTER → 2023-12-05 13:27 | Outpatient (BNVA) | payer MEDICARE, OTHER, SELFPAY | PROVIDERS: PCP Nurse Practitioner; Visit Provider Dermatology | DX: L57.0 Actinic keratosis (principal); L82.0 Inflamed seborrheic keratosis; I87.2 Venous insufficiency (chronic) (peripheral); L81.4 Other melanin hyperpigmentation; L57.8 Other skin changes due to chronic exposure to nonionizing radiation; L82.1 Other seborrheic keratosis | CPT/HCPCS: 17000; 17110; 99214 ==

== ENCOUNTER → 2024-04-08 14:14 | Outpatient (BNVA) | payer MEDICARE, OTHER, SELFPAY | PROVIDERS: PCP Nurse Practitioner; Visit Provider Nurse Practitioner | DX: E03.8 Other specified hypothyroidism (principal); E53.8 Deficiency of other specified B group vitamins | CPT/HCPCS: 80053; 80061; 82306; 82607; 83735; 84443; 85025 ==

== ENCOUNTER 2024-04-22 06:00 | Outpatient (RCR) | payer MEDICARE, OTHER, SELFPAY | END 2024-04-28 23:59 | disposition home or self-care (01) | LOC: APT 06:00 | PROVIDERS: Visit Provider Nurse Practitioner | DX: R48.2 Apraxia (principal) | CPT/HCPCS: 97110; 97162; 97530 ==

== ENCOUNTER 2024-04-29 06:00 | Outpatient (RCR) | payer MEDICARE, OTHER, SELFPAY | END 2024-05-29 23:59 | disposition home or self-care (01) | LOC: APT 06:00 | PROVIDERS: Visit Provider Nurse Practitioner | DX: R48.2 Apraxia (principal) | CPT/HCPCS: 97110; 97112; 97530 ==

== ENCOUNTER 2024-05-30 06:00 | Outpatient (RCR) | payer MEDICARE, OTHER, SELFPAY | END 2024-06-29 23:59 | disposition home or self-care (01) | LOC: APT 06:00 | PROVIDERS: Visit Provider Nurse Practitioner | DX: R48.2 Apraxia (principal) | CPT/HCPCS: 97110; 97112; 97530 ==

== ENCOUNTER 2024-06-30 06:00 | Outpatient (RCR) | payer MEDICARE, OTHER, SELFPAY | END 2024-07-29 23:59 | disposition home or self-care (01) | LOC: APT 06:00 | PROVIDERS: Visit Provider Nurse Practitioner | DX: R48.2 Apraxia (principal) | CPT/HCPCS: 97110; 97530 ==

== ENCOUNTER → 2024-09-23 13:52 | Outpatient (BNVA) | payer MEDICARE, OTHER, SELFPAY | PROVIDERS: PCP Nurse Practitioner; Visit Provider Nurse Practitioner | DX: E03.8 Other specified hypothyroidism (principal); E53.8 Deficiency of other specified B group vitamins; E55.9 Vitamin D deficiency, unspecified; Z79.899 Other long term (current) drug therapy | CPT/HCPCS: 80053; 80164; 82306; 82607; 84443 ==

== ENCOUNTER → 2025-02-24 11:15 | Outpatient (BNVA) | payer MEDICARE, OTHER, SELFPAY | PROVIDERS: Visit Provider Nurse Practitioner Family | DX: I87.2 Venous insufficiency (chronic) (peripheral) (principal); L85.3 Xerosis cutis; D18.01 Hemangioma of skin and subcutaneous tissue; L57.8 Other skin changes due to chronic exposure to nonionizing radiation; X32.XXXA Exposure to sunlight, initial encounter; L81.4 Other melanin hyperpigmentation; L82.1 Other seborrheic keratosis; S20.162A Insect bite (nonvenomous) of breast, left breast, initial encounter; X58.XXXA Exposure to other specified factors, initial encounter; L57.0 Actinic keratosis | CPT/HCPCS: 10120; 17000; 99214 ==

== ENCOUNTER → 2025-03-25 10:01 | Outpatient (BNVA) | payer MEDICARE, OTHER, SELFPAY | PROVIDERS: PCP Orthopaedic Surgery; Visit Provider Orthopaedic Surgery | DX: S82.001A Unspecified fracture of right patella, initial encounter for closed fracture (principal); X58.XXXA Exposure to other specified factors, initial encounter | CPT/HCPCS: 73562; 99203 ==